=== PATIENT | female | born 2000 | race Caucasian/White ===

== ENCOUNTER 2022-12-24 06:42 | Inpatient (IN) | payer OTHER, MEDICAID, SELFPAY ==
--- NOTE | 2022-12-24 07:13 | P.HPOB_ITS ---
OB HPI Date/Time Date of admission: 12/24/22 Date Patient Seen: 12/24/22 Time Patient Seen: 07:13 History of Present Condition Chief complaint: Labor : 1 Para: 0 Estimated Date of Delivery: 12/20/22 Estimated Gestational Age (weeks): 40w4d Narrative: Marlen Coreas is a 22 year old female at 40 weeks 4 days by LMP, concordant with 10 week US, transferring in to hospital from planned home for pain management. She received regular care, transferring from [facility] to [facility] at 28 weeks. Her was complicated by accelerated growth as measured on 30 week growth US, with normal LIZETTE. After tony irregularly for the last week, she was woken up from a nap yesterday, 12/23/22, by stronger contractions which have continued overnight. At 9pm last night CE was 2/80/-1. This morning she decided to come to the hospital for pain relief, hoping to start with nitrous oxide before thinking about an epidural. She reports regular movement, no LOF or VB. She is accompanied by her supportive Yoko, minerva Ulrich, and mom Tamar. Indications Other reason(s) for admission: pain management History of Present care: good care, initiated at week # (11), number of visits (11) and pounds weight gain (49) Dating criteria: LMP confirmed by 1st trimester US Ultrasounds: normal 1st trimester US and normal mid trimester US Obstetrical complications: none Medical complications: psychiatric (anxiety, depression) Preadmission Labs Blood type: A (+) positive -: Antibody screen: negative, GBS status: positive, HBsAG: negative, HIV: negative and RPR/VDLR: negative -: Chlamydia screen: not detected and Gonorrhea screen: not detected -: Rubella: immune and Varicella: not immune HCT: 33.2 HCAB: negative 1 hr GTT: 107 Prior (ies) History: none Evaluation Evaluation Baseline heart rate: 125 Variability: Moderate (11-25) monitor accelerations: Present Monitor Decelerations: Early Contraction Frequency (minutes): 5 Uterine Contraction Intensity: Moderate Status: Category l Dilation (cm): 3 Effacement (%): 100 Dilation: 3-4 cm Effacement: >/=80% station: -2 Position of cervix: mid Consistency: soft Ashton score: 9 PFSH Medical History Rh(D) positive Asthma Suicidal ideation Depression Anxiety Surgical History History of appendectomy Family History (Updated 12/24/22 @ 07:35 by Rehana Zuniga CNM, PATRICK) Grandmother Ovarian cancer Other Depression Diabetes mellitus Family history of thyroid problem Social History Smoking Status: Never smoker Meds Home Medications and Allergies Home Medications Medication Instructions Recorded Confirmed Type buspirone 5 mg tablet 5 mg PO BID 12/24/22 12/24/22 History Allergies Allergy/AdvReac Type Severity Reaction Status Date / Time No Known Allergies Allergy Verified 12/24/22 07:22 Review of Systems Review of Systems Narrative: All negative except as mentioned in HPI Objective Labs 12/24/22 08:10 Assessment and Plan Assessment and Plan Assessment and Plan narrative: A: 22 yo Early labor GBS positive, antibiotics indicated Rh positive, Rhogam not indicated Membranes intact FHR Cat 1 P: Admit to L&D, routine orders Nitrous oxide for pain relief OWEN Antibiotics for GBS prophylaxis with ROM or active labor Encourage movement Zena wants to try the bath now, then likely try IV fentanyl to get some rest Provided reassurance of normal early labor progress Reassess in 4-6 hrs, or sooner PRN
[2022-12-24 07:50] VITALS: BP 116/69
[2022-12-24 08:37] LABS: Add Manual Diff / Slide Review NO; Basophils Absolute Auto 100 /uL (0-100); Basophils Percent Auto 0.5 % (0-2); Eosinophils Absolute Auto 0 /uL (0-450); Hematocrit 37.8 % (36-46); Hemoglobin 13.1 g/dL (12.0-16.0); Lymphocytes Absolute Auto 1100 /uL (1100-4500); Lymphocytes Percent Auto 7.4 % (25-40); Mean Corpuscular HGB Conc 34.7 % (30-36); Mean Corpuscular Volume 95.2 fL (80-100); Monocytes Absolute Auto 900 /uL (0-900); Monocytes Percent Auto 5.6 % (3-14); Neutrophils Absolute Auto 13200 /uL (1500-7000); Neutrophils Percent Auto 86.5 % (50-75); Platelet Count 207 X10^3/uL (150-400); Red Blood Cell Count 3.97 X10^6/uL (4.0-5.2); Red Cell Distribution Width 13.2 % (11.6-14.8); White Blood Cell Count 15.3 X10^3/uL (4.5-11.0)
[2022-12-24] MEDS: LACTATED RINGERS 1,000 ML 100 ML IV ×2 (09:58→11:18)
--- NOTE | 2022-12-24 11:37 | PM.AN.REGBLK ---
Regional Block Pre-procedure Procedure: Continuous Lumbar Epidural for L&D Attending OB provider: Rehana Zuniga PMH/ROS narrative: at 40 weeks 4 days in labor requesting epidural. On nitrous oxide to help manage contraction pain. See pre-anesthesia evaluation for full details. Hx: No personal or family history of anesthesia problems. ASA Class: II Labs: Hct 37.8 % (36-46) 12/24/22 08:10 Plt Count 207 X10^3/uL (150-400) 12/24/22 08:10 Medications: Current Medications Generic Name Dose Route Start Last Admin Trade Name Freq PRN Reason Stop Dose Admin Acetaminophen 650 mg 12/24/22 07:07 Acetaminophen 325 Mg Tablet PO Q6H PRN Fever/Mild Pain (1-3) Calcium Carbonate 1,000 mg 12/24/22 07:07 Calcium Carbonate 500 Mg Tab PO Q4HR PRN Dyspepsia Carboprost Tromethamine 250 mcg 12/24/22 07:07 Carboprost 250 Mcg/Ml Ampul IM Q90M PRN Bleeding Fentanyl 100 mcg 12/24/22 07:07 Fentanyl 100 Mcg/2 Ml Inj IV Q1H PRN Pain, Severe (7-10) Oxytocin/Lactated Ringer's 30 unit in 500 mls @ 200 mls/hr 12/24/22 07:07 Oxytocin Premix IV CONT PRN Bleeding Protocol Tranexamic Acid 1,000 mg/ 100 mls @ 200 mls/hr 12/24/22 07:07 Sodium Chloride IV NOW PRN Bleeding Oxytocin/Lactated Ringer's 30 unit in 500 mls @ 2 mls/hr 12/24/22 07:15 Oxytocin Premix IV TITRATE FERNANDO Protocol 2 MILLIUNIT/MIN Lactated Ringer's 1,000 mls @ 100 mls/hr 12/24/22 07:15 12/24/22 11:18 Lactated Ringers IV 100 mls/hr CONT FERNANDO Administration Lidocaine HCl 20 ml 12/24/22 07:07 Lidocaine 1% 20 Ml INJ INTRA-OP PRN Post Delivery Methylergonovine Maleate 0.2 mg 12/24/22 07:07 Methylergonovine 0.2 Mg Tablet PO Q6HR PRN Heavy Bleeding Methylergonovine Maleate 0.2 mg 12/24/22 07:07 Methylergonovine 0.2 Mg/Ml Vial IM NOW PRN Bleeding Misoprostol 800 mcg 12/24/22 07:07 Misoprostol 200 Mcg Tablet WI NOW PRN Bleeding Misoprostol 400 mcg 12/24/22 07:07 Misoprostol 200 Mcg Tablet SL NOW PRN Bleeding Naloxone HCl 0.2 mg 12/24/22 07:07 Naloxone 0.4 Mg/Ml Vial IV Q2MIN PRN Opiate Reversal Ondansetron HCl 8 mg 12/24/22 07:07 Ondansetron 4 Mg/2 Ml Inj IV Q8H PRN Nausea And Vomiting Oxytocin 10 unit 12/24/22 07:07 Oxytocin 10 Unit/Ml Vial IM NOW PRN Bleeding Allergies: Allergies Allergy/AdvReac Type Severity Reaction Status Date / Time No Known Allergies Allergy Verified 12/24/22 07:22 Procedure Insertion date: 12/24/22 Insertion time: 11:39 Prep/Local: 1% lidocaine Interspace: L4-5 Patient position: sitting Needle: 17 gauge Tuohy Loss of resistance with: saline FADIA at (cm): 8 Catheter placed at SKIN (cm): 13 Catheter in SPACE (cm): 5 Insertion: Yes Paresthesia with insertion Initial Medications TEST DOSE time: 11:07 BOLUS DOSE time: 11:08 BOLUS DOSE (mL): 7 BOLUS DOSE med: other (1.5% lido with epi) Infusion INFUSION: 0.125% bupivacaine and with fentanyl 2 mcg/mL Initial rate (mL/hr): 10 Subsequent interventions: Infusion started 11:23. IVF bolus for BP drop >20% baseline; fetus stable per RN. Pt reports she is unable to feel her contractions currently; able to move B feet. Post-procedure Anesthesia time START: 11:40 Anesthesia time END: 01:21 Post-procedure Anesthesia Assessment: Yes CV function: HR/BP stable, Yes Resp function: RR/sat/airway adequate, Yes Post-op hydration adequate, Yes Pain control adequate, Yes Nausea & vomiting absent, Yes Temperature > 36 C and Yes Mental status appropriate
[2022-12-24] MEDS: ePHEDrine 50 MG/ML VIAL (11:49)
--- NOTE | 2022-12-24 12:41 | PM.OBPNLAB ---
Date/Time Date Patient Seen: 12/24/22 Time Patient Seen: 12:10 Pain Control Pain control: epidural Comments: Marlen was just getting comfortable with epidural when her blood pressure dropped, so ephedrine given. By the time this CNM and SNM arrived, BP had just come back up to normal and she was feeling less nauseated. Prior to epidural, Marlen tried the tub (hated it), the ball, and then opted for epidural. Vital signs: Bo of BP 72/44 now 110/63 HR: 109 bpm SpO2: 98% Temp: 35.8 C Pelvic Exam Dilation (cm): 4 Effacement (%): 100 station: -2 Amniotic membrane status: Bulging Contractions Date/Time contractions began: 1345 12/23/22 Contraction intensity: Moderate Status status: Category l Heart Rate Baseline: 145 Monitor Accelerations: Present Monitor Decelerations: Late (occasional) Monitor Variability: Moderate Comments: HR baseline change to 125 starting at 1225. Assessment and Plan Assessment: other (Early labor) Plan: continuous present management
[2022-12-24] MEDS: AMPICILLIN 2,000 MG in SODIUM CHLORIDE 0.9% 100 ML 200 MG IV (13:27)
--- NOTE | 2022-12-24 14:10 | PM.OBPNLAB ---
Date/Time Date Patient Seen: 12/24/22 Time Patient Seen: 13:07 Pain Control Pain control: epidural Comments: CNM was called by L&D at 1303 due to decelaration down to the 80s. Arrived to L&D at 1307. Dr. Camilo present in room and FHR back up at 1306. Usual resuscitation successful, and this CNM removed O2 once in the room to calm Marlen. Doing well now. Reports that she got some sleep. Pelvic Exam Dilation (cm): 7 Effacement (%): 100 station: -2 Amniotic membrane status: Bulging Contractions Monitor mode: External Contraction frequency (min): 4 Contraction duration (min): 60 Contraction pattern: Regular Contraction intensity: Moderate Status status: Category ll Monitor Accelerations: Present Monitor Decelerations: Prolonged (x1) Monitor Variability: Moderate Assessment and Plan Assessment: active labor Plan: continuous present management Comments: Consider AROM if indicated later. Anticipate .
[2022-12-24] MEDS: AMPICILLIN 1,000 MG in SODIUM CHLORIDE 0.9% 100 ML 200 MG IV ×2 (16:59→21:02)
[2022-12-24] MEDS: FENT 2MCG/ML BUPIV 0.1% EPI 200 MCG/100 ML PLAST..BAG 6 MCG EPIDURAL ×2 (16:59→23:27)
--- NOTE | 2022-12-24 18:30 | PM.OBPNLAB ---
Date/Time Date Patient Seen: 12/24/22 Time Patient Seen: 18:00 Pain Control Pain control: epidural Comments: Marlen is resting on her back in bed receiving a bolus of LR after an episode of hypotension and dizziness with sitting up in bed. She rapidly felt better in supine position. She is feeling more vaginal pressure and has been comfortable with the epidural. VS: BP - 121/58 mmHg, HR - 104 bpm, Sp02 - 96%, T - 36.4C Pelvic Exam Dilation (cm): 8.5 Effacement (%): 100 station: -2 Amniotic membrane status: Bulging Contractions Monitor mode: External Contraction frequency (min): 3 (2-4) Contraction duration (min): 1 Contraction pattern: Regular Contraction intensity: Moderate Status status: Category ll Heart Rate Baseline: 150 Monitor Accelerations: Present Monitor Decelerations: Late (non-recurrent) Monitor Variability: Moderate (periods of minimal ) Assessment and Plan Assessment: active labor and induction ongoing Comments: Recommend Walcher's position to encourage head to engage, side-lying release and forward leaning inversion Discussed starting pitocin to increase power with contractions to promote head engagement Plan to recheck in 2-4 hrs or sooner PRN
[2022-12-24] MEDS: OXYTOCIN PREMIX 30 UNIT/500 ML PLAST..BAG IV (20:33)
--- NOTE | 2022-12-24 20:47 | PM.OBPNLAB ---
Date/Time Date Patient Seen: 12/24/22 Time Patient Seen: 20:40 Pain Control Pain control: epidural Comments: Marlen has done targeted position changes for the last two hours, attempting to encourage the baby to descend in the pelvis, with SNM, CNM, Yoko, minerva Ulrich and mom Tamar at bedside. She thinks he has moved some but still feels pressure on her pubic bone. Her epidural continues to provide good pain relief. VS: BP - 113/62 mmHg, HR - 85 bpm, Sp02 - 96%, T - 37.1 C Temporal Pelvic Exam Dilation (cm): 9 Effacement (%): 100 station: -1 Amniotic membrane status: Ruptured (Clear) Contractions Monitor mode: External Contraction frequency (min): 3 (2-4) Contraction duration (min): 1 Contraction pattern: Regular Contraction intensity: Strong/Firm Status status: Category ll Heart Rate Baseline: 150 Monitor Accelerations: Absent Monitor Decelerations: Late (occasional) Monitor Variability: Moderate Assessment and Plan Assessment: active labor and induction ongoing Plan: begin patient augmentation Comments: Start pitocin augmentation at 2 units Continue antibiotics for GBS prophylaxis per protocol Consulted Dr. Del Rio, on-call OB, notified of prolonged active phase, large EFW, and plan to begin augmentation now. Will call for support PRN. Recheck in 2-4 hrs, sooner PRN
--- NOTE | 2022-12-24 21:33 | P.PN_ITS ---
Subjective Subjective Interval history: Called by L&D and asked to bolus pt's epidural. Pt reports more pain with contractions and has used the PCEA x2 without relief. Objective Labs 12/24/22 08:10 Labs: Laboratory Results - last 24 hr 12/24/22 08:10 WBC 15.3 H RBC 3.97 L Hgb 13.1 Hct 37.8 MCV 95.2 MCH 33.0 MCHC 34.7 RDW 13.2 Plt Count 207 Neut % (Auto) 86.5 H Lymph % (Auto) 7.4 L Steele % (Auto) 5.6 Eos % (Auto) 0.0 L Baso % (Auto) 0.5 Neut # (Auto) 80505 H Lymph # (Auto) 1100 Steele # (Auto) 900 Eos # (Auto) 0 Baso # (Auto) 100 Blood Type A Positive Antibody Screen Negative [facility] Medical History Rh(D) positive Asthma Suicidal ideation Depression Anxiety Surgical History History of appendectomy Family History (Updated 12/24/22 @ 07:35 by Rehana Zuniga CNM, PATRICK) Grandmother Ovarian cancer Other Depression Diabetes mellitus Family history of thyroid problem Social History Smoking Status: Never smoker Assessment & Plan Assessment & Plan narrative: Labor is progressing. Pt indicates her pain is primarily central and down low. Epidural bolused with 5 ml of lidocaine PF 2% at 21:29. By 21:43, pt sounds more comfortable and is preparing to push.
--- NOTE | 2022-12-25 01:25 | PM.EVENT ---
Event Note Date Patient Seen: 12/25/22 Event Note (Rapid Response, Code, or fall): Contacted by Rehana Zuniga due to pt pushing for 3.5hrs with LGA baby, and Category II tracing with current variable decels becoming increasingly prolonged in duration. Assessed the patient. Pt with limited descent with pushing, however felt to have a very adequate pelvis posteriorly, and therefore safe to attempt a vacuum delivery. Patient was evaluated and noted to have adequate pain control. Patient counseled on risks/benefits/alternatives of vacuum assisted delivery. Risks were discussed and they included but were not limited to a need for an pressure nath on the baby, subgaleal hemorrhage, lacerations to the baby's scalp/face, the need to proceed with an abdominal procedure. Discussed that if without good progress with each pull, would not proceed with a vaginal attempt due to concern for shoulder dystocia in the setting of likely LGA . Alternatives would include CS. Questions were answered and the patient verbalized an understanding and decided to proceed. Cervix completely dilated and maternal bladder emptied. Maternal pelvis was noted to be adequate. heart tones: Category II with recurrent variable decels with pushing up to 2min length Vertex presentation +3 station. Moulding present, Caput present but mild Vacuum cup of the Kiwi OmniCup applied to the flexion point without difficulty and during contractions, pressure applied between 400-600 mmHg as indicated in the green zone of the pressure gauge. delivered after 2 contractions with no pop-offs over an intact perineum. Total duration of application of the vacuum was 4 minutes. The head delivered, and the remainder of the was delivered by the molding manager team. Infant was examined and no no evidence of injury noted.
--- NOTE | 2022-12-25 02:44 | P.PCNOB_ITS ---
Events: Labor Augmentation Labor & Delivery Delivery date: 12/25/22 Intrapartal Events: Prolonged Active Phase, Prolonged 2nd Stage > 2.5 hours and Deceleration Cervical ripening method: none Induction method: none Delivery augmentation: pitocin (2 mu/min) Delivery monitor: external FHT Route of delivery: Indication for instrumentation: nonreassuring FHR tracing (and maternal exhaustion) L&D Laceration Description: Perineal - 1st Degree and Labial Delivery repair: vicryl Quantitative Blood Loss: 300 Anesthesia Type: Epidural Narrative: Labor progressed slowly, but after Spinning Babies position changes, Marlen felt the spontaneous urge to push at 2124 and pushed effectively for a long 2nd stage. FHR was Category 2 throughout 2nd stage with baseline increase noted appr ox 0030 and decelerations (prolonged, late, early) present and worsening; moderate variability throughout. No other signs of symptoms of infection as mom remained afebrile and was only tachycardic with pushing efforts. Dr. Del Rio was consulted and asked to come in to evaluate situation of prolonged 2nd stage, maternal exhaustion, ineffective epidural, and concerns regarding FHR. Dr. Del Rio arrived after 3.5 hours of pushing. VAVD of baby at 0121; anterior shoulder delivered easily and posterior shoulder hooked to complete delivery. Baby was placed on maternal abdomen immediately since Marlen was ready to receive him. Apgars 6/9, only requiring stimulation. They remained skin to skin while cord was cut and placenta was delivered. Placenta delivered spontaneously with maternal efforts and appeared to be intact. 3 vessel cord clamped by SASCHA and cut by Yoko at 10 minutes of life after cord pulsing had stopped. Cord blood collected for blood typing. Cord gases also collected. Perineum inspected and found to have shallow R laceration; L labial laceration also noted and both repaired with 3-0 vicryl in usual fashion. Blood loss measured at 300 mL. Mom and baby left stable and is being initiated. Marlen and Yoko are thrilled to meet their son, Michael Zuniga PATRICK, CNM, IBCLC [place] Baby 1: Infant gender: Male Presentation: vertex Position: Right Occiput Anterior Placenta delivery description: Spontaneous Cord Vessel Description: 3 Vessels score (1 min): 6 score (5 min): 9 weight: 4.062 kg Plan for aftercare: Routine care
[2022-12-25] MEDS: ACETAMINOPHEN 325 MG TABLET 650 MG PO ×4 (04:17→21:43)
[2022-12-25] MEDS: KETOROLAC 30 MG/ML VIAL IV (04:17)
[2022-12-25] MEDS: BUSPIRONE 5 MG TABLET PO ×2 (08:39→21:45)
[2022-12-25] MEDS: DERMOPLAST SPRAY 20% 60 ML 1 SPRAY TOP (08:40)
[2022-12-25] MEDS: IBUPROFEN 600 MG TABLET PO ×3 (10:10→21:44)
[2022-12-25] MEDS: LANOLIN OINT 7 GM 1 APPLIC TOP (17:23)
--- NOTE | 2022-12-25 18:36 | P.DS_ITS ---
Discharge Providers Provider Date of admission: 12/24/22 06:42 Discharge Date: 12/26/22 Consults: 12/24/22 07:08 Consult to Anesthesiology Urgent Comment: Consulting Provider: Anesthesiologist Reason for consultation: Epidural Has provider been notified: No 12/26/22 02:39 Consult to Volunteer Services Specialist Routine Comment: Discharge provider: Rehana Zuniga CNM, ARNP Summary Hospital Course Date Patient Seen: 12/26/22 Time Patient Seen: 09:00 Diagnoses: o70.0, z3a.40 Hospital Course: PPD#2: Home intrapartum transfer for pain management, VAVB with first degree perineal and labial lacerations repaired. QBL 300. Marlen is ambulating, voiding and independently. Nipples continue to be sore, especially the left which has breakdown from a shallow latch yesterday. She is passing gas and tolerating a normal diet. Pain is well controlled with PO medications. Bleeding has been light. oYko is at bedside and very supportive. They are looking forward to going home later this morning. Peripartum Data Infant Delivery Method: Assisted Delivery (Vacuum assisted vaginal delivery ) Laceration Description: Perineal - 1st Degree and Labial (Left) Episiotomy description: None Procedures: Vacuum assisted vaginal delivery complications: none [place] 1: Gender: Male Disposition of : home Discharge Diagnosis (1) First degree perineal laceration during delivery: Status: Acute Status at Discharge Cognitive/behavioral status at discharge: at baseline, oriented Functional status at discharge: independent ambulation Overall status at discharge: patient is progressing back to baseline Time Spent with Patient Time attestation: Total time spent providing and/or coordinating discharge services: Objective Labs 12/24/22 08:10 Exam Vital Signs (past 8 hours): BP: 102/71 mmHg HR: 86 bpm RR: 16/min Sp02: 98% T: 98.4F Temporal Other: Fundus firm, midline, U-1 Lochia rubra, light, no clots Perineum well approximated Discharge Plan Discharge Plan Patient Disposition: Home Discharge orders & Medications Prescriptions: Continued buspirone 5 mg tablet 5 mg PO BID Follow up/Referrals: Rehana Zuniga CNM, ARNP [Advanced Conveyor Maintenance Mechanic] - 1 Week (1 week - in person post-op, Friday12/31/22 at 12:00pm 2 week - PHONE visit, Friday01/07/23 at 10:15am 6 week - in person, Friday02/05/2023 at 12:45pm) Diet/Activity/Treatments Diet: Diet as Tolerated and Regular Diet comment: High fiber, stay well hydrated! Activity: Low gonzalez - in and around bed for 2 weeks Skin/Wound/Dressing Care Report to your healthcare provider any signs of infection, such as:: chills, fever, increased pain, unusual drainage and unusual redness Visit Report/Discharge Packet Instructions: DI for Depression Stand Alone Forms: Discharge: Care, Patient Portal/API, Stroke Signs & Symptoms
--- NOTE | 2022-12-25 19:30 | P.PNOB_ITS ---
Subjective - OB Subjective Interval history: PPD#1: Home intrapartum transfer for pain management, VAVB with first degree perineal and labial lacerations repaired. QBL 300. Marlen is ambulating, voiding and independently. Latch is painful, especially on the L side. She has worked with the specialty sales consultant here on the unit, looking forward to support from [facility] who is coming this evening. She is passing gas and tolerating a normal diet. Pain is well controlled with PO medications. Bleeding has been light. Yoko is at bedside and supportive. They would like to go home tomorrow morning after overnight testing. Exam Vital Signs (past 8 hours): BP: 102/62 mmHg HR: 94 bpm RR: 16/min T: 98.3F Temporal Sp02: 98% Other: Fundus firm, midline, @ U-1 Lochia light rubra Perineum well approximated, edematous Skin Other: L nipple - cracked and bleeding R nipple - bruised and creased after feed Objective Labs 12/24/22 08:10 Assessment & Plan Assessment and Plan (1) First degree perineal laceration during delivery: Status: Acute Assessment and plan: Well approximated, pain well controlled with PO pain medications Plan day: 1 plan OB: routine care Comments: Plan to go home tomorrow morning Focus on support overnight Time Spent With Patient Time: Total time spent is greater than 50% in coordination of care (as documented) at patient's floor/unit and/or counseling patient: Time with patient: 15-24 minutes
[2022-12-26] MEDS: ACETAMINOPHEN 325 MG TABLET 650 MG PO ×2 (03:14→09:05)
[2022-12-26] MEDS: IBUPROFEN 600 MG TABLET PO ×2 (03:14→09:05)
[2022-12-26 08:31] VITALS: BP 102/71; PULSE 86; RESP 16; TEMP 36.9
[2022-12-26] MEDS: BUSPIRONE 5 MG TABLET PO (09:05)
== END 2022-12-26 11:49 | disposition home or self-care (01) | DRG 560 ==
PROVIDERS: Admitting Provider Advanced Practice Midwife; Referring Provider Advanced Practice Midwife; Visit Provider Advanced Practice Midwife
DX: O99.824 Streptococcus B carrier state complicating childbirth (principal); O70.0 First degree perineal laceration during delivery; Z3A.40 40 weeks gestation of pregnancy; Z37.0 Single live birth; O99.344 Other mental disorders complicating childbirth; F41.9 Anxiety disorder, unspecified; F32.A Depression, unspecified; Z67.10 Type A blood, Rh positive; O76 Abnormality in fetal heart rate and rhythm complicating labor and delivery; O63.1 Prolonged second stage (of labor); O75.81 Maternal exhaustion complicating labor and delivery
CPT/HCPCS: 36415; 59050; 85025; 86850; 86900; 86901; 99233; G0379; J0290; J1885; J2590